=== PATIENT | male | born 1995 | race Hispanic/Latino ===

== ENCOUNTER 2019-02-27 12:10 | Emergency (ER) | payer SELFPAY ==
[2019-02-27] MEDS ORDERED: Adacel (T-DAP) 0.5 ML SYRINGE ONE (12:22)
--- NOTE | 2019-02-27 12:49 | RAD ---
Exam: XR Knee Rt 4 View STANDARD HISTORY: Laceration just above the kneecap. COMPARISON: None FINDINGS: Dressing material overlies the anterior knee just above the level of the patella and at the level of the patella. There does appear to be mild irregularity of the skin surface likely corresponding to patient's known laceration. No radiopaque foreign body is identified. No acute fracture, dislocation, or other acute osseous abnormality is identified. IMPRESSION: No acute osseous abnormality is identified. Subcutaneous soft tissue swelling and irregularity of the soft tissues just superior and anterior to the level of the right knee related to patient's known laceration.
[2019-02-27] MEDS ORDERED: Lidocaine 1% w/Epinephrine 1:100K 20 ML VIAL ONE (12:51)
[2019-02-27] MEDS ORDERED: Bacitracin Zinc 1 Packet ONE (13:31)
== END 2019-02-27 14:20 | disposition home or self-care (01) ==
LOC: ERS 12:10
DX: S81.011A Laceration without foreign body, right knee, initial encounter (principal); W26.8XXA Contact with other sharp object(s), not elsewhere classified, initial encounter
CPT/HCPCS: 12002; 90471; 90715; J2001

== ENCOUNTER 2019-03-11 15:06 | Emergency (ER) | payer SELFPAY | END 2019-03-11 15:32 | disposition home or self-care (01) | LOC: ERS 15:06 | DX: S81.011D Laceration without foreign body, right knee, subsequent encounter (principal) ==